=== PATIENT | female | born 1945 ===

== ENCOUNTER 2024-04-03 05:40 | Day surgery (SDC) | payer OTHER ==
[2024-04-03] MEDS ORDERED: DIPHENHYDRAMINE HCL 50 MG/ML VIAL 1ML IV ONE (12:15)
[2024-04-03] MEDS ORDERED: MIDAZOLAM HCL 2 MG/2 ML VIAL IV ONE (12:15)
[2024-04-03] MEDS ORDERED: fentaNYL CITRATE 50 MCG/ML AMPUL IV PUSH ONE (12:15)
== END 2024-04-03 12:30 | disposition home or self-care (01) ==
LOC: AMB-ENDOS 05:40
PROVIDERS: ATTEND Colon & Rectal Surgery
DX: K57.20 Diverticulitis of large intestine with perforation and abscess without bleeding (principal); Z93.3 Colostomy status; Z88.6 Allergy status to analgesic agent

== ENCOUNTER 2024-05-15 11:15 | Inpatient (IN) | payer OTHER ==
[~2024-05-15] VITALS: Wt 50.8 kg
[2024-05-15] MEDS ORDERED: CALCIO (11:44)
[2024-05-15] MEDS ORDERED: VITAMIN D (11:44)
[2024-05-15] MEDS ORDERED: PEPCID AC20 MG PO (11:44)
[2024-05-15] MEDS ORDERED: FOSAMAX70 MG (11:45)
[2024-05-15] MEDS ORDERED: NEURONTIN300 MG (11:45)
[2024-05-21] MEDS ORDERED: METRONIDAZOLE/SODIUM CHLORIDE 500 MG/100 ML PIGGYBACK IV SCH (11:45)
[2024-05-21] MEDS ORDERED: CEFTRIAXONE SODIUM 2,000 MG VIAL IV SCH (11:45)
[2024-05-21] MEDS ORDERED: BUPIVACAINE HCL/PF 0.25% 30ML VIAL InF SCH (11:45)
[2024-05-21] MEDS ORDERED: LIDOCAINE HCL 1%/EPINEPHRINE 20ML VIAL IJ SCH (11:45)
[2024-05-21] MEDS ORDERED: MORPHINE SULFATE 4 MG/ML CARTRIDGE IV PRN (14:45)
[2024-05-21] MEDS ORDERED: ONDANSETRON HCL 2 MG/ML VIAL IV PRN (14:45)
[2024-05-21] MEDS ORDERED: RINGERS SOLUTION,LACTATED 1,000 ML IV SCH (14:45)
[2024-05-21] MEDS ORDERED: ATORVASTATIN CA20 MG (15:27)
[2024-05-21] MEDS ORDERED: VITAMIN D325 MCG PO (15:28)
[2024-05-21] MEDS ORDERED: CALCIUM 600+D1 EAC5 (15:30)
[2024-05-21] MEDS ORDERED: MORPHINE SULFATE 4 MG/ML VIAL IV ONE ×2 (16:15→17:40)
[2024-05-21 20:00] VITALS: BP 139/71; O2SAT 98
[2024-05-21] MEDS ORDERED: FAMOTIDINE/PF 20 MG/2 ML VIAL IV PUSH SCH (21:00)
[2024-05-21 21:25] LABS: HEMATOCRIT 35.7 % (36.0-45.00); HEMOGLOBIN 11.8 g/dL (12.0-15.00); MEAN CELL VOLUME 87.7 fL (80.00-100.00); MEAN CORPUSCULAR HEMOGLOBIN 29.1 pg (27.00-32.0); MEAN CORPUSCULAR HGB CONC 33.2 g/dl (32.0-36.0); PLATELET COUNT 188 K/uL (150-450); RED BLOOD COUNT 4.07 M/uL (4.00-6.00); RED CELL DISTRIBUTION WIDTH 14.1 % (11.5-14.5)
[2024-05-22 00:37] VITALS: BP 120/70; O2SAT 97
[2024-05-22 07:15] LABS: HEMATOCRIT 37.1 % (36.0-45.00); HEMOGLOBIN 12.3 g/dL (12.0-15.00); MEAN CELL VOLUME 87.9 fL (80.00-100.00); MEAN CORPUSCULAR HEMOGLOBIN 29.1 pg (27.00-32.0); MEAN CORPUSCULAR HGB CONC 33.2 g/dl (32.0-36.0); PLATELET COUNT 199 K/uL (150-450); RED BLOOD COUNT 4.22 M/uL (4.00-6.00); RED CELL DISTRIBUTION WIDTH 14.2 % (11.5-14.5)
[2024-05-22 08:00] VITALS: BP 131/71; O2SAT 97
[2024-05-22 08:24] LABS: ALBUMIN 3.1 gm/dL (3.4-5.0); CALCIUM 8.9 mg/dL (8.5-10.1); CREATININE SERUM 0.61 mg/dL (0.55-1.02); GFR 94.61; MAGNESIUM 2.1 mg/dL (1.8-2.4); PHOSPHOROUS 3.3 mg/dL (2.5-4.9); POTASSIUM 4.12 mEq/L (3.5-5.1)
[2024-05-22 16:31] VITALS: BP 127/61; O2SAT 95
[2024-05-22] MEDS ORDERED: ENOXAPARIN SODIUM 40 MG/0.4 ML SYRINGE SUBCUTANEO SCH (17:00)
[2024-05-22] MEDS ORDERED: AA 5 % NO.6/DEXTROSE 15 % 2,000 ML CENTRAL SCH (17:00)
[2024-05-22 19:48] LABS: CALCIUM 8.6 mg/dL (8.5-10.1); CHOL HDL RATIO 1.6 (0-5.0); CREATININE SERUM 0.62 mg/dL (0.55-1.02); GFR 92.85; POTASSIUM 3.94 mEq/L (3.5-5.1)
[2024-05-23 01:10] VITALS: BP 128/75; O2SAT 96
[2024-05-23 08:00] VITALS: BP 109/50; O2SAT 95
[2024-05-23] MEDS ORDERED: ENOXAPARIN SODIUM 40 MG/0.4 ML SYRINGE SUBCUTANEO SCH (09:00)
[2024-05-23 10:04] LABS: HEMOGLOBIN 11.4 g/dL (12.0-15.00); MEAN CELL VOLUME 86.8 fL (80.00-100.00); MEAN CORPUSCULAR HEMOGLOBIN 29.2 pg (27.00-32.0); MEAN CORPUSCULAR HGB CONC 33.6 g/dl (32.0-36.0); PLATELET COUNT 207 K/uL (150-450); RED BLOOD COUNT 3.92 M/uL (4.00-6.00); RED CELL DISTRIBUTION WIDTH 14.6 % (11.5-14.5)
[2024-05-23 10:45] LABS: CALCIUM 9.2 mg/dL (8.5-10.1); CREATININE SERUM 0.59 mg/dL (0.55-1.02); GFR 98.32; MAGNESIUM 2.4 mg/dL (1.8-2.4); POTASSIUM 3.99 mEq/L (3.5-5.1)
[2024-05-23] MEDS ORDERED: POTASSIUM PHOS,M-BASIC-D-BASIC 3 MM/ML VIAL IV ONE (13:00)
[2024-05-23 16:00] VITALS: BP 135/60; O2SAT 95
[2024-05-24 01:24] VITALS: BP 127/77; O2SAT 96
[2024-05-24 08:00] VITALS: BP 119/74; O2SAT 98
[2024-05-24 16:00] VITALS: BP 132/55; O2SAT 98
[2024-05-24] MEDS ORDERED: MORPHINE SULFATE 4 MG/ML CARTRIDGE IV PRN (18:45)
[2024-05-25 01:45] VITALS: BP 129/79; O2SAT 99
[2024-05-25 08:03] LABS: CALCIUM 8.1 mg/dL (8.5-10.1); CREATININE SERUM 0.36 mg/dL (0.55-1.02); GFR 173.88; MAGNESIUM 1.7 mg/dL (1.8-2.4); POTASSIUM 3.03 mEq/L (3.5-5.1)
[2024-05-25 08:16] LABS: HEMATOCRIT 27.3 % (36.0-45.00); HEMOGLOBIN 9.2 g/dL (12.0-15.00); MEAN CORPUSCULAR HEMOGLOBIN 29.7 pg (27.00-32.0); MEAN CORPUSCULAR HGB CONC 33.8 g/dl (32.0-36.0); PLATELET COUNT 165 K/uL (150-450); RED CELL DISTRIBUTION WIDTH 13.7 % (11.5-14.5)
[2024-05-25 08:29] LABS: PHOSPHOROUS 0.6 mg/dL (2.5-4.9)
[2024-05-25 09:32] VITALS: BP 114/54; O2SAT 597
[2024-05-25] MEDS ORDERED: POTASSIUM PHOS,M-BASIC-D-BASIC 18 MM in 0.9 % SODIUM CHLORIDE 250 ML IV NR (12:00)
[2024-05-25 16:00] VITALS: BP 115/72; O2SAT 96
[2024-05-25] MEDS ORDERED: MAGNESIUM SULFATE IN WATER 50 ML IV NR (17:00)
[2024-05-25] MEDS ORDERED: CALCIUM CARBONATE/VITAMIN D3 1 TAB TABLET PO SCH (17:00)
[2024-05-25] MEDS ORDERED: SOD FERRIC GLUC COMPLX/SUCROSE 62.5 MG in 0.9 % SODIUM CHLORIDE 50 ML IV SCH (17:43)
[2024-05-25] MEDS ORDERED: Cyanocobalamin/Mecobalamin 1 TAB.SL SL SCH (17:44)
[2024-05-25] MEDS ORDERED: IRON FUM,PS/FOLIC/BCOMP,C NO.9 1 CAP CAPSULE PO SCH (17:44)
[2024-05-25] MEDS ORDERED: ACETAMINOPHEN 500 MG GEL..CAP PO PRN (18:45)
[2024-05-25] MEDS ORDERED: Cyanocobalamin/Mecobalamin 1 TAB.SL SL ONE (20:30)
[2024-05-25] MEDS ORDERED: IRON FUM,PS/FOLIC/BCOMP,C NO.9 1 CAP CAPSULE PO ONE (20:30)
[2024-05-25] MEDS ORDERED: SOD FERRIC GLUC COMPLX/SUCROSE 62.5 MG/5 ML AMPUL IV ONE (20:30)
[2024-05-26] VITALS: BP 133/69; O2SAT 96
[2024-05-26 08:00] VITALS: BP 123/69; O2SAT 95
[2024-05-26] MEDS ORDERED: DIATRIZOATE MEGLUMINE, SODIUM 30 ML BOTTLE PO NR (13:20)
[2024-05-26 16:00] VITALS: BP 136/59; O2SAT 100
[2024-05-26] MEDS ORDERED: PIPERACILLIN/TAZOBACTAM SODIUM 3.375 GM in 0.9 % SODIUM CHLORIDE 100 ML IV SCH (18:00)
[2024-05-27 00:42] VITALS: BP 104/64; O2SAT 92
[2024-05-27 07:48] LABS: HEMATOCRIT 24.2 % (36.0-45.00); MEAN CELL VOLUME 85.8 fL (80.00-100.00); MEAN CORPUSCULAR HEMOGLOBIN 29.6 pg (27.00-32.0); MEAN CORPUSCULAR HGB CONC 34.5 g/dl (32.0-36.0); PLATELET COUNT 167 K/uL (150-450); RED BLOOD COUNT 2.83 M/uL (4.00-6.00); RED CELL DISTRIBUTION WIDTH 13.9 % (11.5-14.5)
[2024-05-27 07:51] LABS: HEMOGLOBIN 8.4 g/dL (12.0-15.00)
[2024-05-27 08:00] VITALS: BP 100/57; O2SAT 95
[2024-05-27 08:02] LABS: INR 1.09; PARTIAL THROMBOPLASTIN TIME 33.3 SECONDS (22.0-34.0); PROTHROMBIN TIME 11.8 SECONDS (9.0-11.5)
[2024-05-27 08:40] LABS: ALBUMIN 1.7 gm/dL (3.4-5.0); BILIRUBIN TOTAL 0.59 mg/dL (0.3-1.2); BILIRUBIN,CONJUGATED 0.18 mg/dL (0.0-0.2); BILIRUBIN,UNCONJUGATED 0.41 mg/dL (0.0-0.6); CALCIUM 7.8 mg/dL (8.5-10.1); CHOL HDL RATIO 3.9 (0-5.0); CREATININE SERUM 0.39 mg/dL (0.55-1.02); GFR 158.54; GLOBULINA 2.9 G/DL (2.4-3.5); MAGNESIUM 1.7 mg/dL (1.8-2.4); POTASSIUM 3.28 mEq/L (3.5-5.1); TOTAL PROTEIN 4.6 gm/dL (6.4-8.2)
[2024-05-27] MEDS ORDERED: MAGNESIUM SULFATE IN WATER 50 ML IV NR (11:30)
[2024-05-27] MEDS ORDERED: POTASSIUM CHLORIDE 20MEQ/100ML H2O PB IV NR (11:45)
[2024-05-27] MEDS ORDERED: FUROsemide 20 MG/2 ML VIAL IV SCH (12:30)
[2024-05-27 15:25] LABS: CALCIUM 8.2 mg/dL (8.5-10.1); CHOL HDL RATIO 4.7 (0-5.0); CREATININE SERUM 0.36 mg/dL (0.55-1.02); GFR 173.88; POTASSIUM 3.4 mEq/L (3.5-5.1)
[2024-05-27] MEDS ORDERED: AA 5 % NO.6/DEXTROSE 15 % 2,000 ML CENTRAL SCH (17:00)
[2024-05-27 17:49] VITALS: BP 89/61; O2SAT 96
[2024-05-28 00:27] VITALS: BP 100/56; O2SAT 97
[2024-05-28] MEDS ORDERED: POTASSIUM CHLORIDE 20MEQ/100ML H2O PB IV NR (08:00)
[2024-05-28 10:53] VITALS: BP 96/61; O2SAT 99
[2024-05-28 16:00] VITALS: BP 136/79; O2SAT 98
[2024-05-29] VITALS: BP 105/63; O2SAT 98
[2024-05-29 10:38] VITALS: BP 117/70; O2SAT 98
[2024-05-29 17:35] VITALS: BP 97/60; O2SAT 97
[2024-05-30 01:33] VITALS: BP 106/62; O2SAT 96
[2024-05-30 04:19] LABS: HEMATOCRIT 34.9 % (36.0-45.00); HEMOGLOBIN 12.2 g/dL (12.0-15.00); MEAN CELL VOLUME 84.4 fL (80.00-100.00); MEAN CORPUSCULAR HEMOGLOBIN 29.5 pg (27.00-32.0); MEAN CORPUSCULAR HGB CONC 34.9 g/dl (32.0-36.0); PLATELET COUNT 259 K/uL (150-450); RED BLOOD COUNT 4.14 M/uL (4.00-6.00); RED CELL DISTRIBUTION WIDTH 14.7 % (11.5-14.5)
[2024-05-30 04:36] LABS: CALCIUM 7.8 mg/dL (8.5-10.1); CREATININE SERUM 0.31 mg/dL (0.55-1.02); GFR 206.63; MAGNESIUM 1.7 mg/dL (1.8-2.4); POTASSIUM 3.06 mEq/L (3.5-5.1)
[2024-05-30 05:02] LABS: PHOSPHOROUS 0.5 mg/dL (2.5-4.9)
[2024-05-30] MEDS ORDERED: POTASSIUM CHLORIDE 20MEQ/100ML H2O PB IV NR (08:00)
[2024-05-30] MEDS ORDERED: MAGNESIUM SULFATE IN WATER 50 ML IV NR (08:00)
[2024-05-30] MEDS ORDERED: POTASSIUM PHOS,M-BASIC-D-BASIC 15 MM in 0.9 % SODIUM CHLORIDE 250 ML IV NR (09:00)
[2024-05-30 10:33] VITALS: BP 124/71; O2SAT 98
[2024-05-30 16:00] VITALS: BP 122/75; O2SAT 97
[2024-05-30] MEDS ORDERED: MAGNESIUM CHLORIDE 70 MG TABLET.DR PO SCH (17:00)
[2024-05-31] VITALS: BP 114/72; O2SAT 97
[2024-05-31] MEDS ORDERED: DIATRIZOATE MEGLUMINE, SODIUM 30 ML BOTTLE PO NR (06:00)
[2024-05-31 07:51] LABS: HEMATOCRIT 40.1 % (36.0-45.00); HEMOGLOBIN 13.6 g/dL (12.0-15.00); MEAN CORPUSCULAR HEMOGLOBIN 28.9 pg (27.00-32.0); PLATELET COUNT 383 K/uL (150-450); RED BLOOD COUNT 4.72 M/uL (4.00-6.00); RED CELL DISTRIBUTION WIDTH 15.3 % (11.5-14.5)
[2024-05-31 08:00] VITALS: BP 104/75; O2SAT 99
[2024-05-31 09:15] LABS: CALCIUM 8.2 mg/dL (8.5-10.1); CREATININE SERUM 0.38 mg/dL (0.55-1.02); GFR 163.36; MAGNESIUM 2.2 mg/dL (1.8-2.4); POTASSIUM 3.43 mEq/L (3.5-5.1)
[2024-05-31 09:24] LABS: PHOSPHOROUS 1.3 mg/dL (2.5-4.9)
[2024-05-31] MEDS ORDERED: POTASSIUM PHOS,M-BASIC-D-BASIC 15 MM in 0.9 % SODIUM CHLORIDE 250 ML IV NR (10:30)
[2024-05-31] MEDS ORDERED: POTASSIUM CHLORIDE 20MEQ/100ML H2O PB IV ONE (12:15)
[2024-05-31] MEDS ORDERED: AMINO ACIDS/PROTEIN HYDROLYS 30 ML BLIST.PACK PO SCH (17:00)
[2024-05-31 17:45] VITALS: BP 122/71; O2SAT 98
[2024-06-01 00:52] VITALS: BP 128/74; O2SAT 97
[2024-06-01 08:00] VITALS: BP 126/71; O2SAT 97
[2024-06-01 16:14] VITALS: BP 103/65; O2SAT 98
[2024-06-02 01:37] VITALS: BP 95/50; O2SAT 98
[2024-06-02] MEDS ORDERED: PRILOSEC OTC20 MG PO (12:43)
[2024-06-02] MEDS ORDERED: NEURONTIN300 MG PO (12:43)
[2024-06-02] MEDS ORDERED: TYLENOL ARTHRI650 MG PO (12:43)
[2024-06-02] MEDS ORDERED: INTESTINEX680 M1 PO (12:43)
== END 2024-06-02 15:06 | disposition home or self-care (01) | DRG 330 ==
LOC: O/R 05-21 05:15 → SURH 05-21 11:15
PROVIDERS: Internal Medicine Geriatric Medicine; ADMIT Colon & Rectal Surgery; ATTEND Colon & Rectal Surgery
PROC: 0DBP4ZZ Excision of Rectum, Percutaneous Endoscopic Approach (ICD-10-PCS; 2024-05-21)
PROC: 0DT84ZZ Resection of Small Intestine, Percutaneous Endoscopic Approach (ICD-10-PCS; 2024-05-21)
PROC: 0DQH4ZZ Repair Cecum, Percutaneous Endoscopic Approach (ICD-10-PCS; 2024-05-21)
PROC: 0DBP4ZZ Excision of Rectum, Percutaneous Endoscopic Approach (ICD-10-PCS; 2024-05-21)
PROC: 0DTN4ZZ Resection of Sigmoid Colon, Percutaneous Endoscopic Approach (ICD-10-PCS; principal; 2024-05-21 14:30)
PROC: 02HV33Z Insertion of Infusion Device into Superior Vena Cava, Percutaneous Approach (ICD-10-PCS; 2024-05-23)
PROC: BW21YZZ Computerized Tomography (CT Scan) of Abdomen and Pelvis using Other Contrast (ICD-10-PCS; 2024-05-26)
PROC: 30243N1 Transfusion of Nonautologous Red Blood Cells into Central Vein, Percutaneous Approach (ICD-10-PCS; 2024-05-28)
PROC: BW21YZZ Computerized Tomography (CT Scan) of Abdomen and Pelvis using Other Contrast (ICD-10-PCS; 2024-05-31)
DX: K57.20 Diverticulitis of large intestine with perforation and abscess without bleeding (principal); J90 Pleural effusion, not elsewhere classified; K91.72 Accidental puncture and laceration of a digestive system organ or structure during other procedure; J44.9 Chronic obstructive pulmonary disease, unspecified; R06.02 Shortness of breath